=== PATIENT | female | born 1930 | race Caucasian/White ===

== ENCOUNTER → 2016-11-30 | Day surgery (SDC) | payer OTHER ==
[~2016-11-30] MED LIST: LIDOCAINE 1% 30 ML SDV ONE
--- NOTE | 2016-11-30 13:58 | CPIP ---
[f rep st] INVASIVE CARDIAC PROCEDURE DATE OF PROCEDURE: 11/30/2016 Implantation Summary for Medtronic LINQ INDICATIONS: The patient is 86 years old. She has a history of known CAD. She recently presented w ith a stroke. She is referred for implantation of a LINQ to rule out atrial fibrillation. PROCEDURE: Implantation of a Medtronic LINQ. TECHNIQUE: Following informed consent and in the fasting state, the patient was prepped in the usual sterile fashion in the [facility]. The 3rd intercostal space was identified and infiltrated with 2% lidoca ine. A 1 cm incision was made. The Medtronic LINQ was then injected underneath the skin. The incis ion was then closed with 2 todd. A dry dressing was applied. COMPLICATIONS: None. DISPOSITION: The patient will be recovered in the [facility] and discharged home later today. /[id number]/MODL
== END | disposition still patient (30) ==
LOC: FCATH 12:26
PROVIDERS: ATTEND Internal Medicine Cardiovascular Disease
PROC: 0JH602Z Insertion of Monitoring Device into Chest Subcutaneous Tissue and Fascia, Open Approach (ICD-10-PCS; principal; 2016-11-30)
DX: G45.9 Transient cerebral ischemic attack, unspecified (principal); I25.10 Atherosclerotic heart disease of native coronary artery without angina pectoris; I10 Essential (primary) hypertension; E78.5 Hyperlipidemia, unspecified; G47.33 Obstructive sleep apnea (adult) (pediatric); Z88.0 Allergy status to penicillin; Z95.5 Presence of coronary angioplasty implant and graft
CPT/HCPCS: C1764

== ENCOUNTER 2017-05-01 08:28 | Day surgery (SDC) | payer OTHER ==
[2017-05-01] MEDS ORDERED: LIDOCAINE 1% *Not for Epidural 20 ML MDV IF ONE (09:00)
[2017-05-01] MEDS ORDERED: fentaNYL 100 MCG/2 ML INJ ONE (09:32)
[2017-05-01] MEDS ORDERED: LIDOCAINE 1% 300 MG/30 ML SDV ONE (09:32)
[2017-05-01] MEDS ORDERED: MIDAZOLAM 2 MG/2 ML VIAL ONE (09:32)
[2017-05-01] MEDS ORDERED: BUPIVACAINE 0.5% 30 ML SDV ONE (09:33)
[2017-05-01] MEDS ORDERED: LIDO/EPI 1% **for epidural** 30 ML SDV ONE (09:33)
--- NOTE | 2017-05-01 11:57 | CPIP ---
[f rep st] INVASIVE CARDIAC PROCEDURE DATE OF PROCEDURE: 05/01/2017 INDICATIONS: The patient is an 86-year-old female with a history of palpitations. She had a Medtro hali LINQ implanted in the past. Recently, we made the diagnosis of atrial fibrillation. She is on appropriate therapy. PROCEDURE: Explantation of a Medtronic LINQ. TECHNIQUE: Following informed consent, the patient was brought in the fasting state to the cardiac catheterization laboratory. The skin overlying the Medtronic LINQ was infiltrated with 2% lidocaine . The #10 blade was used to make a 1 cm incision. The LINQ was then dissected out and removed from the pocket. The pocket was irrigated, all bleeders were cauterized, and the pocket closed initiall y with a layer of interrupted suture using 3-0 Vicryl. Abi[place] were then used to close the skin. A dry dressing was applied. COMPLICATIONS: None. DISPOSITION: The patient will be transferred to the [facility] and discharged home later today. /[id number]/MODL
== END 2017-05-01 11:27 | disposition home or self-care (01) ==
LOC: FCATH 08:28
PROVIDERS: ATTEND Internal Medicine Cardiovascular Disease
PROC: 0JPT3PZ Removal of Cardiac Rhythm Related Device from Trunk Subcutaneous Tissue and Fascia, Percutaneous Approach (ICD-10-PCS; principal; 2017-05-01)
DX: I48.1 Persistent atrial fibrillation (principal); I25.10 Atherosclerotic heart disease of native coronary artery without angina pectoris; E78.5 Hyperlipidemia, unspecified; Z95.5 Presence of coronary angioplasty implant and graft
CPT/HCPCS: J2250; J3010